=== PATIENT | female | born 1990 | race Caucasian/White ===

== ENCOUNTER → 2017-01-20 | Outpatient (CLI) | payer BC ==
[2017-01-20 16:19] LABS: CH 29.9; CHCM 34.7; HCT 34.8 % (34.0-46.0); HGB 11.9 gm/dL (11.4-16.0); MCH 29.6 pg (25.0-35.0); MCHC 34.3 g/dL (31.0-37.0); MCV 86.4 fL (80.0-100.0); RBC 4.03 m/uL (3.80-5.40); WBC 9.9 k/uL (3.8-10.6)
[2017-01-20 16:34] LABS: Glucose 84 mg/dL (74-99); Non-African American GFR(MDRD) >60 (>60 ml/min/1.73 sqM)
--- NOTE | 2017-01-20 16:40 | US ---
EXAMINATION TYPE: US OB <= 14 wk fetus DATE OF EXAM: 01/20/2017 3:58 PM COMPARISON: NONE CLINICAL HISTORY: Confirm Dates and Viability Z36. 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 Dates by Current Scan for: (11 weeks/2 days) EDC: 08/09/2017 MATERNAL ANATOMY Uterus: 14.1 x 8.9 x 6.9 Right Ovary: not seen due to bowel gas Left Ovary: not seen due to bowel gas Post CDS / Adnexa: wnl Presence of free fluid: no Presence of corpus luteal cyst: not seen Presence of subchorionic bleed: no GESTATION / SURVEY CRL: 4.3cm (11 weeks/2 days) MSD: wnl Yolk Sac (normal less than 6mm): not seen Heart Rate: 174 bpm Rhythm: Normal IUP: Viable IUP Date of LMP: 11/06/2016 Beta HcG (if available): not available IMPRESSION: VIABLE INTRAUTERINE GESTATION WITH A GESTATIONAL AGE OF 11 WEEKS 2 DAYS +/- 5 DAYS. ESTIMATED DATE OF CONFINEMENT BASED ON THIS EXAMINATION IS 08/09/2017.
[2017-01-20 17:05] LABS: Hepatitis B Surface Ag Index 0.08
[2017-01-21 05:31] LABS: Toxoplasma Antibody (IgG) <3.0 IU/mL (<7.2)
[2017-01-21 07:38] LABS: HIV-1/HIV-2 Ab Screen NONREAC (NON REAC)
== END | disposition home or self-care (01) ==
LOC: RADUSWWP 15:42
PROVIDERS: ATTEND Obstetrics & Gynecology
DX: Z36 Encounter for antenatal screening of mother (principal); Z3A.11 11 weeks gestation of pregnancy
CPT/HCPCS: 36415; 76801; 82565; 82947; 85027; 86762; 86777; 86778; 86780; 86850; 86900; 86901; 87340; 87389

== ENCOUNTER 2017-04-26 10:25 | Outpatient (CLI) | payer BC ==
[2017-04-26 11:40] VITALS: BP 115/59; PULSE 66; RESP 16; TEMP 97.7
== END 2017-04-26 11:35 | disposition home or self-care (01) ==
LOC: FBPOP 10:25
PROVIDERS: ATTEND Obstetrics & Gynecology
DX: O99.89 Other specified diseases and conditions complicating pregnancy, childbirth and the puerperium (principal); R19.7 Diarrhea, unspecified; R10.9 Unspecified abdominal pain; Z3A.24 24 weeks gestation of pregnancy
CPT/HCPCS: 99213

== ENCOUNTER → 2017-05-01 | Outpatient (CLI) | payer BC ==
[2017-05-01 10:11] LABS: CH 29.6; CHCM 34.2; HCT 35.8 % (34.0-46.0); HGB 12.6 gm/dL (11.4-16.0); MCH 30.6 pg (25.0-35.0); MCV 87.2 fL (80.0-100.0); Mean Platelet Volume 6.7; RBC 4.11 m/uL (3.80-5.40); RDW 13.7 % (11.5-15.5); WBC 10.3 k/uL (3.8-10.6)
== END | disposition home or self-care (01) ==
LOC: LABWHC1 08:14
PROVIDERS: ATTEND Obstetrics & Gynecology
DX: Z34.82 Encounter for supervision of other normal pregnancy, second trimester (principal); Z3A.00 Weeks of gestation of pregnancy not specified
CPT/HCPCS: 36415; 82950; 85027

== ENCOUNTER 2017-07-20 21:12 | Outpatient (CLI) | payer BC ==
[2017-07-20 21:29] VITALS: BP 117/59; PULSE 85; RESP 16; TEMP 97
--- NOTE | 2017-07-24 08:49 | P.MSEPDOC ---
Presenting Problems - Arrival Data Date of Arrival on Unit: 07/20/17 Time of Arrival on Unit: 21:11 Mode of Transport: Wheelchair - Complaint OB-Reason for Admission/Chief Complaint: Decreased Movement Medical History - Information : 2 Para: 1 Term: 0 : 1 Abortions: Spontaneous or Elective: 0 Number of Living Children: 1 - Gestational Age Gestational Age by AILYN (wks/days): 36 Weeks and 4 Days Review of Systems - Review of Systems Constitutional: No problems Breast: No problems ENT: No problems Cardiovascular: No problems Respiratory: No problems Gastrointestinal: No problems Genitourinary: No problems Musculoskeletal: No problems Neurological: No problems Skin: No problems Vital Signs - Temperature Temperature: 97.0 F Temperature Source: Temporal Artery Scan - Pulse Pulse Oximetery Pulse Rate: 85 Pulse Assessment Method: Automatic Cuff - Respirations Respiratory Rate: 16 Oxygen Delivery Method: Room Air - Blood Pressure Sitting Blood Pressure: 117/59 Blood Pressure Mean: 78 Blood Pressure Source: Automatic Cuff Medical Screen Scoring (Pre) - Cervical Exam Dilation: Exam Deferred Effacement: Exam Deferred - Uterine Contractions Frequency: > 5 minutes apart = 1 Duration: > 40 seconds = 2 Intensity: N/A - Maternal Vital Signs Maternal Temperature: N/A Maternal Blood Pressure: N/A Signs of Preeclampsia: N/A Maternal Respirations: N/A - Maternal Trauma Maternal Trauma: N/A - Assessment Baseline FHR: 130 Heart Rate - NICHD Category: Category I (Normal) = 0 Position: N/A Station: N/A - Total Score Total Score (Pre): 3 - Level of Risk Level of Risk: Low (0-5) Physician Notification (Pre) - Physician Notified Physician Notified Date: 07/20/17 Physician Notified Time: 21:54 Physician/Practitioner Notifed:: Dr. Velez New Order Received: Yes - Notification Comment Comment: Orders given to discharge patient home with instructions, patient is to return to the hospital if she experiences decreased movement, otherwise follow up with Dr. Johnson in the office 07/22 Disposition - Disposition OB Disposition: Discharge to home, Written follow up instructions reviewed Discharge Date: 07/20/17 Discharge Time: 22:00 I agree with the RN Medical Screening Exam: Yes Risk & Benefit of care provided described in d/c instruction: Yes Diagnosis: DECREASED MOVEMENTS, THIRD TRIMESTER, UNSP
== END 2017-07-20 22:00 | disposition home or self-care (01) ==
LOC: FBPOP 21:12
PROVIDERS: ATTEND Obstetrics & Gynecology
DX: O36.8130 Decreased fetal movements, third trimester, not applicable or unspecified (principal); Z3A.36 36 weeks gestation of pregnancy
CPT/HCPCS: 59025; 99213

== ENCOUNTER 2017-08-11 05:33 | Inpatient (IN) | payer BC ==
[2017-08-11] MEDS ORDERED: OXYTOCIN 10 UNIT/ML 1 ML VIAL IM PRN (05:51)
[2017-08-11] MEDS ORDERED: CARBOPROST TROMETHAMINE 250 MCG/ML 1 ML AMP IM PRN (05:51)
[2017-08-11] MEDS ORDERED: OXYTOCIN 20 UNITS/1000 ML NS 1,000 ML IV SCH ×2 (05:51→17:34)
[2017-08-11] MEDS ORDERED: LIDOCAINE 1% (PF) 10 MG/ML (30 ML SDV) SQ PRN (05:51)
[2017-08-11] MEDS ORDERED: TERBUTALINE 1 MG/ML VIAL SQ PRN (05:51)
[2017-08-11] MEDS ORDERED: METHYLERGONOVINE 0.2 MG/ML 1 ML AMP IM PRN (05:51)
[2017-08-11 06:01] VITALS: RESP 16; BMI 35.9
[2017-08-11] MEDS: LACTATED RINGERS 1,000 ML IV SCH ×3 (06:02→10:43)
[2017-08-11 06:03] LABS: Basophils % (A) 0 %; CH 27.7; Eosinophils # (A) 0.1 k/uL (0-0.7); Eosinophils % (A) 1 %; HCT 35.1 % (34.0-46.0); HDW 3.12; HGB 11.6 gm/dL (11.4-16.0); Luc # (Auto) 0.25; Luc % (Auto) 3; Lymphocytes # (A) 1.6 k/uL (1.0-4.8); Lymphocytes % (A) 19 %; MCH 27.8 pg (25.0-35.0); MCV 84.2 fL (80.0-100.0); Mean Platelet Volume 7.3; Monocytes # (A) 0.4 k/uL (0-1.0); Monocytes % (A) 5 %; Neutrophils % (A) 72 %; RBC 4.17 m/uL (3.80-5.40); WBC 8.3 k/uL (3.8-10.6); WBC (Perox) 8.03
--- NOTE | 2017-08-11 06:24 | P.HPOB ---
History of Present Illness H&P Date: 08/11/17 Chief Complaint: Patient is requesting induction of labor. This patient is a pleasant 26-year-old 2 para 1 female estimated date of confinement 12/14/2016 estimated gestational age 39-5/7 weeks' gestation who is presenting to labor and delivery for requested induction of labor. Patient' s care has been uncomplicated. Patient's been uncomfortable and has a favorable cervix at this time as requested induction of labor. Review of Systems Constitutional: Denies chills, Denies fever Cardiovascular: Denies chest pain, Denies shortness of breath Respiratory: Denies cough Gastrointestinal: Reports heartburn Genitourinary: Reports Menstruation: Reports amenorrhea Past Medical History Past Medical History: Asthma History of Any Multi-Drug Resistant Organisms: None Reported Past Surgical History: No Surgical Hx Reported Additional Past Surgical History / Comment(s): [place] Tooth extraction Past Anesthesia/Blood Transfusion Reactions: No Reported Reaction Past Psychological History: No Psychological Hx Reported Smoking Status: Former smoker Past Alcohol Use History: None Reported Past Drug Use History: None Reported - Past Family History Mother Family Medical History: No Reported History Medications and Allergies Home Medications Medication Instructions Recorded Confirmed Type Multivitamins, Thera [Multivitamin] 1 tab PO DAILY 07/09/16 08/11/17 History Allergies Allergy/AdvReac Type Severity Reaction Status Date / Time iodine Allergy Severe Anaphylaxis Verified 08/11/17 05:51 shellfish derived [Shellfish] Allergy Severe Anaphylaxis Verified 08/11/17 05:51 Exam - Vital Signs Vital signs: Vital Signs Temp Pulse Resp BP 08/11/17 05:55 97.5 F L 83 16 125/60 Intake and Output 08/10/17 08/10/17 08/11/17 14:59 22:59 06:59 Other: # Voids 1 Weight 110.223 kg Patient Weight 08/11/17 06:59 Weight 110.223 kg - OBG Physical Exam Abdomen: bowel sounds normal, no diffuse tenderness, no bruit present, no guarding noted, no hepatomegaly, no splenomegaly, no mass Vulva: both: normal Vagina: normal moisture, no discharge Cervix: Cervix is 2-3 cm dilated 50% effaced -2 station. Cervix: no lesion, no discharge Uterus: enlarged (Fundal height is 40 cm.) Results blood work shows she is A positive, rubella low positive, RPR is nonreactive, hepatitis B was negative, group B strep was negative, Glucola was normal, ultrasounds were normal. Estimated weight is 8-1/2-9 pounds. Result Diagrams: 08/11/17 05:55 Assessment and Plan (1) Elective induction of labor planned Narrative/Plan: This is a pleasant 26-year-old 2 para 1 female 39-5/7 weeks' gestation presents to labor and delivery for elective induction of labor. Plan is induction of labor and anticipate vaginal delivery. Status: Acute
[2017-08-11] MEDS ORDERED: BUPIVACAINE (PF) 0.25% 30 ML VIAL ONE (10:16)
[2017-08-11] MEDS ORDERED: fentaNYL (PF) 50 MCG/ML 5 ML AMP ONE (10:16)
[2017-08-11] MEDS ORDERED: SODIUM CHLORIDE 0.9% 100 ML BAG ONE (10:16)
[2017-08-11] MEDS ORDERED: BUPIVACAINE (PF) 0.25% 25 ML, fentaNYL (PF) 200 MCG in SODIUM CHLORIDE 0.9% 71 ML EPIDURAL ONE (10:32)
--- NOTE | 2017-08-11 17:22 | P.PROBDLV ---
Vaginal Delivery Note - . Vaginal Delivery Note: Normal vaginal delivery viable female Apgars 8 and 9 delivery time is 1657 hrs. Please see dictated H&P for intimate details of this patient's admission. In summary this is a pleasant 26 2 para 1 female 39-5/7 weeks gestation who was admitted to labor and delivery for requested induction of labor. Patient admission is 2-3 cm dilated has artificial rupture membranes for clear fluid. Patient's labor is induced with Pitocin per protocol. She does progress she gets an epidural for pain control. Patient pushes for approximately 1 hour and 's position was occiput posterior presentation, however with the last push and rotates and the patient delivers the has had an entire body with 1 push. A midline episiotomy was made. There is a nuchal cord which the patient delivered through is very loose. The umbilical cords and doubly clamped and cut. is late on the mother's abdomen. Vigorous viable female infant Apgars are 8 and 9 delivery time is 1657 hrs. Placenta spontaneously delivered intact. Inspection of perineum shows a second- degree laceration which is repaired with 3-0 Vicryl usual fashion. Excellent reapproximation is noted. Estimated blood loss 175 mL. There are no complications. All counts are correct 3.
[2017-08-11] MEDS ORDERED: diphenhydrAMINE 50 MG/ML 1 ML VIAL IVP PRN (17:34)
[2017-08-11] MEDS ORDERED: BENZOCAINE/MENTHOL SPRAY 1 GM/SPRAY AEROSOL TOPICAL PRN (17:34)
[2017-08-11] MEDS ORDERED: diphenhydrAMINE 25 MG CAP PO PRN (17:34)
[2017-08-11] MEDS ORDERED: ZOLPIDEM 5 MG TAB PO PRN (17:34)
[2017-08-11] MEDS ORDERED: BISACODYL 10 MG SUPP RECTAL PRN (17:34)
[2017-08-11] MEDS ORDERED: SIMETHICONE 80 MG CHEWABLE PO PRN (17:34)
[2017-08-11] MEDS ORDERED: MEASLES-MUMPS-RUBELLA VACC/PF 12,500 UNIT/0.5 ML VIAL SQ ONE (17:34)
[2017-08-11] MEDS ORDERED: LANOLIN CREAM 5 GM TUBE TOPICAL PRN (17:34)
[2017-08-11] MEDS ORDERED: ACETAMINOPHEN TAB 325 MG TAB PO PRN (17:34)
[2017-08-11] MEDS ORDERED: WITCH HAZEL 1 EACH MED..PAD TOPICAL PRN (17:34)
[2017-08-11] MEDS ORDERED: HYDROCORTISONE 2.5% RECTAL CREAM 30 GM TUBE RECTAL PRN (17:34)
[2017-08-11] MEDS ORDERED: Acetaminophen-Codeine 300-30mg TAB PO PRN ×2 (17:34)
[2017-08-11] MEDS: IBUPROFEN 600 MG TAB PO PRN (17:52)
[2017-08-11] MEDS: SENNOSIDES-DOCUSATE SODIUM 1 EACH TAB PO SCH ×2 (18:44→20:58)
--- NOTE | 2017-08-12 06:19 | P.PNOBGVD ---
Subjective - Subjective Patient reports: Reports appetite normal, Reports voiding normally, Reports pain well controlled, Reports ambulating normally : doing well Objective - Latest Vital Signs Latest vital signs: Vital Signs Temp Pulse Pulse Resp BP BP Pulse Ox 08/12/17 03:45 98.0 F 81 16 109/57 97 08/11/17 23:35 98.0 F 83 16 100/55 96 08/11/17 19:28 97.4 F L 88 16 130/77 08/11/17 18:58 85 16 136/64 08/11/17 18:28 98.8 F 80 16 136/74 08/11/17 18:13 96 16 134/73 08/11/17 17:58 99 16 137/78 08/11/17 17:43 100 16 133/72 08/11/17 17:28 101 H 16 139/73 Intake and Output 08/11/17 08/11/17 08/12/17 14:59 22:59 06:59 Intake Total 2532.4 Output Total 600 Balance 1932.4 Intake: IV 2000 Lactated Ringers 1,000 ml 2000 @ 125 mls/hr IV .Q8H EMMIE Rx#:[id number] Intake, IV Titration 532.4 Amount Oxytocin 20 Units/1000 ml 532.4 Ns 1,000 ml @ 1 MILLIUNIT/MIN 3 mls/hr IV .Q24H EMMIE Rx#:[id number] Output: Urine 600 Other: # Voids 1 - Exam Lungs: bilateral: normal Chest: Normal S1, Normal S2 Extremities: Present: normal Abdomen: Present: normal appearance, soft Uterus: Present: normal, firm Assessment and Plan Assessment: day #1. Patient is resting without complaints wishes to go home today. Vital signs are stable she is afebrile. Uterus is firm nontender she's having normal lochia. My impression this is a normal course. Plan is to continue routine care discharge home later today. (1) Elective induction of labor planned Current Visit: Yes Status: Acute Code(s): [id number] - SNOMED Code(s): 884318924
--- NOTE | 2017-08-12 06:21 | P.DS ---
Providers Date of admission: 08/11/17 05:33 Expected date of discharge: 08/12/17 Attending physician: Quentin Johnson Primary care physician: Toby Gonzáles - Discharge Diagnosis(es) (1) Elective induction of labor planned Current Visit: Yes Status: Acute Hospital Course: Please see dictated H&P for intimate details of this patient's admission. Brief summary is a pleasant 26-year-old 2 para 1 female 39-5/7 weeks gestation admitted to labor and delivery for elective induction of labor. Patient is admitted has uncomplicated induction of labor was on have vaginal delivery viable female infant. Please see dictated delivery note. day #1 patient is without complaints wishes to go home. Patient's felt be stable for discharge home follow up with me in 6 weeks. Procedures: Induction of labor and normal vaginal delivery. Patient Condition at Discharge: Good Plan - Discharge Summary New Discharge Prescriptions: New Acetaminophen-Codeine 300-30mg [Tylenol w/codeine #3] 1 - 2 each PO Q4HR PRN #30 tab PRN Reason: Mild Pain exceeding Tylenol Ibuprofen [Motrin] 600 mg PO Q6HR PRN #40 tab PRN Reason: Mild Pain Or Fever >= 100.5 No Action Multivitamins, Thera [Multivitamin] 1 tab PO DAILY Discharge Medication List Multivitamins, Thera [Multivitamin] 1 tab PO DAILY 07/09/16 [History] Acetaminophen-Codeine 300-30mg [Tylenol w/codeine #3] 1 - 2 each PO Q4HR PRN # 30 tab 08/12/17 [Rx] Ibuprofen [Motrin] 600 mg PO Q6HR PRN #40 tab 08/12/17 [Rx] Follow up Appointment(s)/Referral(s): Quentin Johnson MD [STAFF PHYSICIAN] - 6 Weeks Patient Instructions/Handouts: Vaginal Delivery (DC) Activity/Diet/Wound Care/Special Instructions: No intercourse or anything per vagina for 6 weeks. Please call if any fever, chills, excessive vaginal bleeding, and/or abdominal pain. Discharge Disposition: HOME SELF-CARE
[2017-08-12] MEDS: SENNOSIDES-DOCUSATE SODIUM 1 EACH TAB PO SCH (07:38)
[2017-08-12] MEDS: IBUPROFEN 600 MG TAB PO PRN ×2 (09:07→14:45)
[2017-08-12 14:11] VITALS: TEMP 98
[2017-08-12 18:20] VITALS: BP 112/70; PULSE 82
== END 2017-08-12 18:00 | disposition home or self-care (01) | DRG 775 ==
LOC: 4FBP 05:33
PROVIDERS: ADMIT Obstetrics & Gynecology; ATTEND Obstetrics & Gynecology
PROC: 3E033VJ Introduction of Other Hormone into Peripheral Vein, Percutaneous Approach (ICD-10-PCS; principal; 2017-08-11)
PROC: 10E0XZZ Delivery of Products of Conception, External Approach (ICD-10-PCS; principal; 2017-08-11)
PROC: 10907ZC Drainage of Amniotic Fluid, Therapeutic from Products of Conception, Via Natural or Artificial Opening (ICD-10-PCS; principal; 2017-08-11)
PROC: 00HU33Z Insertion of Infusion Device into Spinal Canal, Percutaneous Approach (ICD-10-PCS; principal; 2017-08-11)
PROC: 0KQM0ZZ Repair Perineum Muscle, Open Approach (ICD-10-PCS; principal; 2017-08-11)
PROC: 3E0R3BZ Introduction of Anesthetic Agent into Spinal Canal, Percutaneous Approach (ICD-10-PCS; principal; 2017-08-11)
PROC: 0W8NXZZ Division of Female Perineum, External Approach (ICD-10-PCS; principal; 2017-08-11)
DX: O69.81X0 Labor and delivery complicated by cord around neck, without compression, not applicable or unspecified (principal); O70.1 Second degree perineal laceration during delivery; Z37.0 Single live birth; Z3A.39 39 weeks gestation of pregnancy; Z87.891 Personal history of nicotine dependence; Z88.3 Allergy status to other anti-infective agents; Z91.013 Allergy to seafood
CPT/HCPCS: 85025; 88307; 90707

== ENCOUNTER → 2019-12-20 | Outpatient (CLI) | payer BC ==
[2019-12-20 17:45] LABS: HCT 36.2 % (34.0-46.0); HGB 12.1 gm/dL (11.4-16.0); MCH 26.9 pg (25.0-35.0); MCHC 33.5 g/dL (31.0-37.0); MCV 80.4 fL (80.0-100.0); Mean Platelet Volume 7.5; Platelet Count 230 k/uL (150-450); RDW 13.7 % (11.5-15.5); WBC 8.4 k/uL (3.8-10.6)
[2019-12-20 18:04] LABS: Lymphocytes # (M) 2.69 k/uL (1.0-4.8); Monocytes # (M) 0.25 k/uL (0-1.0); Neutrophils # (M) 5.46 k/uL (1.3-7.7); Neutrophils % (M) 65 %; Nucleated Red Blood Cells 0 /100 WBC (0-0); Total Cells Counted 100
[2019-12-20 18:08] LABS: Ovalocytes Present; Polychromasia Present
[2019-12-20 18:58] LABS: Erythrocyte Sedimentation Rate 6 mm/hr (0-20)
[2019-12-21 01:51] LABS: % Iron Saturation 8.64 (12.00-45.00); ALT 18 U/L (8-44); AST 12 U/L (13-35); African American GFR (CKD) 114.7 (60.0-200.0); Albumin/Globulin Ratio 1.96 (1.60-3.17); Alkaline Phosphatase 66 U/L (41-126); C Reactive Protein <0.4 mg/dL (0.0-0.8); Calcium 9.3 mg/dL (8.7-10.3); Carbon Dioxide 28.6 mmol/L (21.6-31.8); Chloride 105 mmol/L (96-109); Creatine Kinase 73 U/L (26-186); Ferritin 10.4 ng/mL (10.0-291.0); Globulin 2.3 g/dL (1.6-3.3); Glucose 96 mg/dL (70-110); Iron 35 ug/dL (50-170); Non-African American GFR(CKD) 98.9 (60.0-200.0); Potassium 4.2 mmol/L (3.5-5.5); Rheumatoid Factor, Qnt <4 IU/mL (0-15); Sodium 139 mmol/L (135-145); Total Bilirubin 0.3 mg/dL (0.3-1.2); Total Iron Binding Capacity 405 ug/dL (228-460); Total Protein 6.8 g/dL (6.2-8.2)
[2019-12-21 06:51] LABS: DNA Double-Stranded Indetermin (NEGATIVE); EBV-EA (IgG) 0.9 AI; EBV-EBNA(IgG) 7.3 AI; EBV-VCA (IgG) >8.0 AI; EBV-VCA (IgM) <0.2 AI
== END | disposition home or self-care (01) ==
LOC: LABWHC1 17:06
PROVIDERS: ATTEND Nurse Practitioner Family
DX: R53.83 Other fatigue (principal); R10.9 Unspecified abdominal pain; Z84.0 Family history of diseases of the skin and subcutaneous tissue
CPT/HCPCS: 36415; 80053; 82306; 82550; 82607; 82728; 83540; 83550; 84439; 84443; 85025; 85652; 86038; 86140; 86225; 86431; 86644; 86645; 86663; 86664; 86665

== ENCOUNTER → 2020-10-23 | Outpatient (CLI) | payer BC ==
--- NOTE | 2020-10-23 08:54 | US ---
EXAMINATION TYPE: US extremity nonvasc mass LT DATE OF EXAM: 10/23/2020 COMPARISON: NONE CLINICAL HISTORY: R22.42 SWELLING, MASS, AND LUMP LT LOWER LIMB. Palpable on left thigh for 4 weeks, no pain, no change in size, no trama the patient can remember. 2.0 x 1.0 x 1.0cm hyperechoic, slightly complex, lesion that may represent a resolving hematoma versu s lipoma. No vascularity noted. IMPRESSION: 1. There is an ill-defined hyperechoic area within the subcutaneous tissues which is nonspecific. Lip raymundo should be considered. Recommendations: 1. Follow-up ultrasound in one month. If this is changing over the interval, MRI with contrast would be recommended.
== END | disposition home or self-care (01) ==
LOC: RADUSWWP 07:32
PROVIDERS: ATTEND Family Medicine
DX: R22.42 Localized swelling, mass and lump, left lower limb (principal)

== ENCOUNTER → 2021-01-15 | Outpatient (CLI) | payer BC | END | disposition home or self-care (01) | LOC: LABWHC1 16:28 | PROVIDERS: ATTEND Family Medicine | DX: Z20.822 Contact with and (suspected) exposure to COVID-19 (principal) | CPT/HCPCS: U0003; C9803; U0005 ==

== ENCOUNTER → 2021-04-15 | Outpatient (CLI) | payer BC | END | disposition home or self-care (01) | LOC: LABWHC1 15:14 | PROVIDERS: ATTEND Family Medicine | DX: R53.81 Other malaise (principal) | CPT/HCPCS: U0003; C9803 ==

== ENCOUNTER → 2021-05-30 | Outpatient (CLI) | payer BC ==
[2021-05-30 15:04] LABS: Basophils % (A) 0 %; Eosinophils # (A) 0.1 k/uL (0-0.7); Eosinophils % (A) 2 %; HCT 35.2 % (34.0-46.0); HGB 11.5 gm/dL (11.4-16.0); Lymphocytes # (A) 2.3 k/uL (1.0-4.8); Lymphocytes % (A) 30 %; MCH 26.1 pg (25.0-35.0); MCHC 32.6 g/dL (31.0-37.0); MCV 79.9 fL (80.0-100.0); Monocytes # (A) 0.3 k/uL (0-1.0); Monocytes % (A) 4 %; Neutrophils # (A) 4.8 k/uL (1.3-7.7); Neutrophils % (A) 63 %; Platelet Count 257 k/uL (150-450); RDW 14.5 % (11.5-15.5); WBC 7.7 k/uL (3.8-10.6)
== END | disposition home or self-care (01) ==
LOC: LABPAT 14:14
PROVIDERS: ATTEND Obstetrics & Gynecology
DX: Z01.812 Encounter for preprocedural laboratory examination (principal); N92.0 Excessive and frequent menstruation with regular cycle; N84.0 Polyp of corpus uteri
CPT/HCPCS: 36415; 85025

== ENCOUNTER 2021-06-03 09:06 | Day surgery (SDC) | payer BC ==
[2021-05-31 10:38] VITALS: BMI 25.7
[~2021-06-03 09:06] MED LIST: DEXAMETHASONE SOD PHOSPHATE 4 MG/ML 1 ML VIAL IV ONE; HYDROmorphone 0.5 MG/0.5 ML SYRINGE IVP PRN; LIDOCAINE 1% (10MG/ML) FOR IV START INTRADERMA PRN; MIDAZOLAM 2 MG/2 ML VIAL IV PRN; ONDANSETRON 4 MG/2 ML VIAL IVP ONE; Pre Op ABX Message 1 EACH MISC MISCELLANE ONE
[2021-06-03] MEDS: LACTATED RINGERS 1,000 ML IV SCH ×2 (09:54→13:04)
[2021-06-03] MEDS ORDERED: KETOROLAC 15 MG/ML 1 ML VIAL ONE (10:48)
[2021-06-03] MEDS ORDERED: LIDOCAINE 1% INJ 10MG/ML (20 ML MDV) ONE (10:48)
[2021-06-03] MEDS ORDERED: PROPOFOL 10 MG/ML 20 ML VIAL IV ONE (10:48)
[2021-06-03] MEDS ORDERED: MIDAZOLAM 2 MG/2 ML VIAL ONE (10:48)
[2021-06-03] MEDS ORDERED: fentaNYL (PF) 50 MCG/ML 2 ML AMP ONE (10:48)
--- NOTE | 2021-06-03 11:22 | P.OP ---
Date of Procedure: 06/03/21 Preoperative Diagnosis: Menorrhagia, endometrial polyps Postoperative Diagnosis: Same Procedure(s) Performed: Hysteroscopy, D&C, polypectomy Surgeon: Brittany Verdugo Estimated Blood Loss (ml): 50 IV fluids (ml): 200 Urine output (ml): 100 Pathology: other (Endometrial curettings and polyps) Condition: stable Disposition: PACU Operative Findings: Multiple small endometrial polyps. Examination under anesthesia within normal limits, negative adnexa bilaterally. Description of Procedure: Patient is brought to the operating suite where a general anesthetic is administered. She's placed in the dorsal lithotomy position. The appropriate timeout was performed to assure proper patient and procedural identification. Urine hCG is negative. Antibiotics are not deemed necessary. The cervix, vagina, perineal bodies are all prepped and draped in the usual sterile fashion. Examination under anesthesia reveals an anteverted uterus, negative adnexa bilaterally. Weighted speculum was placed into the vagina. Bladder is drained for approximately 100 mL of clear yellow urine. Weighted speculum was placed into the vagina. Anterior lip of the cervix is grasped with a double-tooth tenaculum. Uterus sounds to a depth of 10 cm in the anteverted position. Cervix is gently and easily dilated using Hanks dilators with little resistance. Hysteroscope was then placed and fluid is infused. The cavity is distended and inspected, shaggy-appearing proliferative tissue is noted along with several small polyps. Hysteroscope was removed. A medium sharp curette is used and all 4 quadrants thoroughly to curettage the endometrial cavity. A fair amount of tissue and polyps are obtained. Polyp forcep is then used to remove additional tissue. Hemostasis is now excellent. Hysteroscope was once again placed and the cavity appears to be clear. All sponge needle and enhancement counts are correct. Anterior lip of the cervix is clean and dry. Toradol is given prior to leaving the operative suite. Patient is brought back to the recovery room in very good condition with stable vital signs including blood pressure 90/40, pulse 80, 100% oxygen saturation. Patient will follow-up with me in the office in 2 weeks.
[2021-06-03 11:27] VITALS: TEMP 97.9
[2021-06-03 11:37] VITALS: RESP 16
[2021-06-03 13:27] VITALS: BP 96/60; PULSE 71
== END 2021-06-03 13:30 | disposition home or self-care (01) ==
LOC: OR 09:06
PROVIDERS: ATTEND Obstetrics & Gynecology
DX: N84.0 Polyp of corpus uteri (principal); N92.0 Excessive and frequent menstruation with regular cycle; J45.909 Unspecified asthma, uncomplicated
CPT/HCPCS: 58558; 81025; 88305; J2250; J1100; J2405; J2001; J3010; J1885; J2704

== ENCOUNTER 2021-07-07 00:31 | Emergency (ER) | payer BC, OTHER ==
[2021-07-07 01:23] VITALS: RESP 18
[2021-07-07] MEDS ORDERED: SODIUM CHLORIDE 0.9% 1,000 ML IV STA (01:46)
--- NOTE | 2021-07-07 01:47 | ED ---
Weakness HPI - General Chief complaint: Allergic Reaction Stated complaint: Allergic Reaction Time Seen by Provider: 07/07/21 01:36 Source: patient, family, RN notes reviewed, old records reviewed Mode of arrival: wheelchair Limitations: no limitations - History of Present Illness Initial comments: This is a 30-year-old female presenting for concern of possible medication reaction. Patient states she has not felt well lightheadedness dizziness lip sw elling maybe some shortness of breath prior to arrival. Only thing that happened tonight which she did take her medication Prometrium just prior to arrival. MD Complaint: generalized weakness -: days(s) Location: generalized Severity: moderate Severity scale (1-10): 6 Quality: sharp Consistency: constant, now resolved Improves with: none Worsens with: none Context: history of similar Associated Symptoms: denies other symptoms - Related Data Home Medications Medication Instructions Recorded Confirmed Albuterol Inhaler [Ventolin Hfa 1 puff INHALATION DIRECTED PRN 05/31/21 06/03/21 Inhaler] Pnv No.95/Ferrous Fum/Folic AC 1 each PO DAILY 05/31/21 05/31/21 [ Multivitamin Tablet] Allergies Allergy/AdvReac Type Severity Reaction Status Date / Time iodine Allergy Severe Rash/Hives Verified 07/07/21 00:42 shellfish derived [Shellfish] Allergy Severe Anaphylaxis Verified 07/07/21 00:42 Review of Systems ROS Statement: Those systems with pertinent positive or pertinent negative responses have been documented in the HPI. ROS Other: All systems not noted in ROS Statement are negative. Past Medical History Past Medical History: Asthma Additional Past Medical History / Comment(s): IBS, IRON DEFICIENCY, MIGRAINES, STATES BROKEN PELVIS WITH CHILDBIRTH., MENORRHAGIA. History of Any Multi-Drug Resistant Organisms: None Reported Past Surgical History: No Surgical Hx Reported Additional Past Surgical History / Comment(s): D&C Past Anesthesia/Blood Transfusion Reactions: No Reported Reaction Additional Past Anesthesia/Blood Transfusion Reaction / Comment(s): NO ANEST HESIA HX. Past Psychological History: No Psychological Hx Reported Smoking Status: Former smoker Past Alcohol Use History: Rare Past Drug Use History: None Reported - Past Family History Mother Family Medical History: No Reported History General Exam Limitations: no limitations General appearance: alert, in no apparent distress, anxious Head exam: Present: atraumatic, normocephalic, normal inspection Eye exam: Present: normal appearance, PERRL, EOMI. Absent: scleral icterus, conjunctival injection, periorbital swelling ENT exam: Present: normal exam, mucous membranes moist Neck exam: Present: normal inspection. Absent: tenderness, meningismus, lymphadenopathy Respiratory exam: Present: normal lung sounds bilaterally. Absent: respiratory distress, wheezes, rales, rhonchi, stridor Cardiovascular Exam: Present: regular rate, normal rhythm, normal heart sounds. Absent: systolic murmur, diastolic murmur, rubs, gallop, clicks GI/Abdominal exam: Present: soft, normal bowel sounds. Absent: distended, tenderness, guarding, rebound, rigid Extremities exam: Present: normal inspection, full ROM, normal capillary refill. Absent: tenderness, pedal edema, joint swelling, calf tenderness Back exam: Present: normal inspection Neurological exam: Present: alert, oriented X3, CN II-XII intact Psychiatric exam: Present: normal affect, normal mood Skin exam: Present: warm, dry, intact, normal color. Absent: rash Course Vital Signs 07/07/21 07/07/21 07/07/21 00:38 01:18 01:25 Temperature 97.6 F Pulse Rate 71 95 Respiratory 20 18 18 Rate Blood Pressure 96/65 95/55 O2 Sat by Pulse 100 99 Oximetry 07/07/21 03:29 Temperature 98.6 F Pulse Rate 71 Respiratory 18 Rate Blood Pressure 95/53 O2 Sat by Pulse 99 Oximetry - Reevaluation(s) Reevaluation #1: Medical record is reviewed Patient symptoms improved here in the ER Patient informed results and questions answered Patient is in no acute distress Medical Decision Making - Medical Decision Making 30 female with lip swelling concern for ALLERGIC reaction after taking medications a. Symptoms resolved upon arrival to the emergency department and patient can be discharged home - Lab Data Result diagrams: 07/07/21 02:06 07/07/21 02:06 Lab Results 07/07/21 07/07/21 07/07/21 Range/Units 02:06 02:06 02:06 WBC 7.3 (3.8-10.6) k/uL RBC 4.23 (3.80-5.40) m/uL Hgb 11.5 (11.4-16.0) gm/dL Hct 33.0 L (34.0-46.0) % MCV 78.0 L (80.0-100.0) fL MCH 27.1 (25.0-35.0) pg MCHC 34.7 (31.0-37.0) g/dL RDW 14.7 (11.5-15.5) % Plt Count 192 (150-450) k/uL MPV 8.1 Neutrophils % 58 % Lymphocytes % 33 % Monocytes % 5 % Eosinophils % 2 % Basophils % 0 % Neutrophils # 4.2 (1.3-7.7) k/uL Lymphocytes # 2.4 (1.0-4.8) k/uL Monocytes # 0.4 (0-1.0) k/uL Eosinophils # 0.2 (0-0.7) k/uL Basophils # 0.0 (0-0.2) k/uL PT 11.3 (9.0-12.0) sec INR 1.1 (<1.2) APTT 24.9 (22.0-30.0) sec Sodium (137-145) mmol/L Potassium (3.5-5.1) mmol/L Chloride (98-107) mmol/L Carbon Dioxide (22-30) mmol/L Anion Gap mmol/L BUN (7-17) mg/dL Creatinine (0.52-1.04) mg/dL Est GFR (CKD-EPI)AfAm (>60 ml/min/1.73 sqM) Est GFR (CKD-EPI)NonAf (>60 ml/min/1.73 sqM) Glucose (74-99) mg/dL Plasma Lactic Acid Sy (0.7-2.0) mmol/L Calcium (8.4-10.2) mg/dL Phosphorus (2.5-4.5) mg/dL Magnesium (1.6-2.3) mg/dL Total Bilirubin (0.2-1.3) mg/dL AST (14-36) U/L ALT (4-34) U/L Alkaline Phosphatase (38-126) U/L Creatine Kinase (30-135) U/L Troponin I (0.000-0.034) ng/mL Total Protein (6.3-8.2) g/dL Albumin (3.5-5.0) g/dL TSH (0.465-4.680) mIU/L Urine Color Light Yellow Urine Appearance Clear (Clear) Urine pH 6.5 (5.0-8.0) Ur Specific [place] 1.011 (1.001-1.035) Urine Protein Negative (Negative) Urine Glucose (UA) Negative (Negative) Urine Ketones Negative (Negative) Urine Blood Negative (Negative) Urine Nitrite Negative (Negative) Urine Bilirubin Negative (Negative) Urine Urobilinogen <2.0 (<2.0) mg/dL Ur Leukocyte Esterase Trace H (Negative) Urine RBC <1 (0-5) /hpf Urine WBC 1 (0-5) /hpf Ur Squamous Epith Cells <1 (0-4) /hpf Urine Mucus Rare H (None) /hpf Urine Opiates Screen Not Detected (NotDetected) Ur Oxycodone Screen Not Detected (NotDetected) Urine Methadone Screen Not Detected (NotDetected) Ur Propoxyphene Screen Not Detected (NotDetected) Ur Barbiturates Screen Not Detected (NotDetected) U Tricyclic Antidepress Not Detected (NotDetected) Ur Phencyclidine Scrn Not Detected (NotDetected) Ur Amphetamines Screen Not Detected (NotDetected) U Methamphetamines Scrn Not Detected (NotDetected) U Benzodiazepines Scrn Not Detected (NotDetected) Urine Cocaine Screen Not Detected (NotDetected) U Marijuana (THC) Screen Not Detected (NotDetected) 07/07/21 07/07/21 07/07/21 Range/Units 02:06 02:06 02:06 WBC (3.8-10.6) k/uL RBC (3.80-5.40) m/uL Hgb (11.4-16.0) gm/dL Hct (34.0-46.0) % MCV (80.0-100.0) fL MCH (25.0-35.0) pg MCHC (31.0-37.0) g/dL RDW (11.5-15.5) % Plt Count (150-450) k/uL MPV Neutrophils % % Lymphocytes % % Monocytes % % Eosinophils % % Basophils % % Neutrophils # (1.3-7.7) k/uL Lymphocytes # (1.0-4.8) k/uL Monocytes # (0-1.0) k/uL Eosinophils # (0-0.7) k/uL Basophils # (0-0.2) k/uL PT (9.0-12.0) sec INR (<1.2) APTT (22.0-30.0) sec Sodium 137 (137-145) mmol/L Potassium 3.7 (3.5-5.1) mmol/L Chloride 107 (98-107) mmol/L Carbon Dioxide 20 L (22-30) mmol/L Anion Gap 10 mmol/L BUN 16 (7-17) mg/dL Creatinine 0.73 (0.52-1.04) mg/dL Est GFR (CKD-EPI)AfAm >90 (>60 ml/min/1.73 sqM) Est GFR (CKD-EPI)NonAf >90 (>60 ml/min/1.73 sqM) Glucose 138 H (74-99) mg/dL Plasma Lactic Acid Sy 1.3 (0.7-2.0) mmol/L Calcium 9.3 (8.4-10.2) mg/dL Phosphorus 4.0 (2.5-4.5) mg/dL Magnesium 2.1 (1.6-2.3) mg/dL Total Bilirubin 0.4 (0.2-1.3) mg/dL AST 17 (14-36) U/L ALT 16 (4-34) U/L Alkaline Phosphatase 48 (38-126) U/L Creatine Kinase 51 (30-135) U/L Troponin I <0.012 (0.000-0.034) ng/mL Total Protein 6.6 (6.3-8.2) g/dL Albumin 3.9 (3.5-5.0) g/dL TSH 0.855 (0.465-4.680) mIU/L Urine Color Urine Appearance (Clear) Urine pH (5.0-8.0) Ur Specific [place] (1.001-1.035) Urine Protein (Negative) Urine Glucose (UA) (Negative) Urine Ketones (Negative) Urine Blood (Negative) Urine Nitrite (Negative) Urine Bilirubin (Negative) Urine Urobilinogen (<2.0) mg/dL Ur Leukocyte Esterase (Negative) Urine RBC (0-5) /hpf Urine WBC (0-5) /hpf Ur Squamous Epith Cells (0-4) /hpf Urine Mucus (None) /hpf Urine Opiates Screen (NotDetected) Ur Oxycodone Screen (NotDetected) Urine Methadone Screen (NotDetected) Ur Propoxyphene Screen (NotDetected) Ur Barbiturates Screen (NotDetected) U Tricyclic Antidepress (NotDetected) Ur Phencyclidine Scrn (NotDetected) Ur Amphetamines Screen (NotDetected) U Methamphetamines Scrn (NotDetected) U Benzodiazepines Scrn (NotDetected) Urine Cocaine Screen (NotDetected) U Marijuana (THC) Screen (NotDetected) Disposition Clinical Impression: Weakness Disposition: HOME SELF-CARE Condition: Good Instructions (If sedation given, give patient instructions): Weakness (ED) Is patient prescribed a controlled substance at d/c from ED?: No Referrals: Toby Gonzáles DO [Primary Care Provider] - 1-2 days
[2021-07-07 02:33] LABS: Basophils % (A) 0 %; Eosinophils # (A) 0.2 k/uL (0-0.7); Eosinophils % (A) 2 %; HGB 11.5 gm/dL (11.4-16.0); Lymphocytes # (A) 2.4 k/uL (1.0-4.8); Lymphocytes % (A) 33 %; MCH 27.1 pg (25.0-35.0); MCHC 34.7 g/dL (31.0-37.0); Mean Platelet Volume 8.1; Monocytes # (A) 0.4 k/uL (0-1.0); Monocytes % (A) 5 %; Neutrophils # (A) 4.2 k/uL (1.3-7.7); Neutrophils % (A) 58 %; Platelet Count 192 k/uL (150-450); RBC 4.23 m/uL (3.80-5.40); RDW 14.7 % (11.5-15.5); WBC 7.3 k/uL (3.8-10.6)
[2021-07-07 02:45] LABS: ALT 16 U/L (4-34); AST 17 U/L (14-36); African American GFR (CKD) >90 (>60 ml/min/1.73 sqM); Albumin 3.9 g/dL (3.5-5.0); Alkaline Phosphatase 48 U/L (38-126); Anion Gap 10 mmol/L; Appearance,Urine Clear (Clear); Bilirubin,Urine Negative (Negative); Blood Urea Nitrogen 16 mg/dL (7-17); Blood,Urine Negative (Negative); Calcium 9.3 mg/dL (8.4-10.2); Carbon Dioxide 20 mmol/L (22-30); Chloride 107 mmol/L (98-107); Color,Urine Light Yellow; Creatine Kinase 51 U/L (30-135); Glucose 138 mg/dL (74-99); Glucose,Urine (UA) Negative (Negative); INR 1.1 (<1.2); Ketones,Urine Negative (Negative); Leukocyte Esterase,Urine Trace (Negative); Magnesium 2.1 mg/dL (1.6-2.3); Mucus,Urine Rare /hpf; Nitrite,Urine Negative (Negative); Non-African American GFR(CKD) >90 (>60 ml/min/1.73 sqM); PH, Urine 6.5 (5.0-8.0); Partial Thromboplastin Time 24.9 sec (22.0-30.0); Potassium 3.7 mmol/L (3.5-5.1); Protein,Urine Negative (Negative); Prothrombin Time 11.3 sec (9.0-12.0); RBC,Urine <1 /hpf (0-5); Sodium 137 mmol/L (137-145); Specific Gravity,Urine 1.011 (1.001-1.035); Squamous Epithelial Cell,Urine <1 /hpf (0-4); Total Bilirubin 0.4 mg/dL (0.2-1.3); Total Protein 6.6 g/dL (6.3-8.2); Urobilinogen,Urine <2.0 mg/dL (<2.0); WBC,Urine 1 /hpf (0-5)
[2021-07-07 03:13] LABS: Amphetamine Screen,Urine Not Detected (NotDetected); Barbiturate Screen,Urine Not Detected (NotDetected); Benzodiazepines Screen,Urine Not Detected (NotDetected); Cocaine Screen,Urine Not Detected (NotDetected); Methadone Screen, Urine Not Detected (NotDetected); Opiate Screen,Urine Not Detected (NotDetected); Oxycodone Screen, Urine Not Detected (NotDetected); Phencyclidine Screen,Urine Not Detected (NotDetected); Tricyclic Antidepressant,Urine Not Detected (NotDetected); Urn Cannabinoid Scrn Not Detected (NotDetected)
[2021-07-07 04:27] VITALS: BP 95/53; PULSE 71; TEMP 98.6
== END 2021-07-07 03:29 | disposition home or self-care (01) ==
LOC: EC 00:31
DX: R53.1 Weakness (principal); J45.909 Unspecified asthma, uncomplicated; Z87.891 Personal history of nicotine dependence
CPT/HCPCS: 36415; 80053; 80306; 81001; 82550; 83605; 83735; 84100; 84443; 84484; 85025; 85610; 85730; 96360; 99284

== ENCOUNTER → 2024-04-22 | Outpatient (CLI) | payer OTHER ==
[2024-04-22 09:25] LABS: Basophils % (A) 0 %; Eosinophils # (A) 0.2 k/uL (0-0.7); Eosinophils % (A) 3 %; HCT 44.3 % (34.0-46.0); Lymphocytes % (A) 26 %; MCH 28.6 pg (25.0-35.0); MCV 84.2 fL (80.0-100.0); Mean Platelet Volume 7.5; Monocytes # (A) 0.3 k/uL (0-1.0); Monocytes % (A) 4 %; Neutrophils % (A) 65 %; Platelet Count 228 k/uL (150-450); RBC 5.26 m/uL (3.80-5.40); RDW 13.5 % (11.5-15.5); WBC 7.6 k/uL (3.8-10.6)
--- NOTE | 2024-04-22 12:07 | XR ---
EXAMINATION TYPE: XR lumbar spine 2 or 3V DATE OF EXAM: 04/22/2024 9:46 AM CLINICAL INDICATION:Female, 33 years old with history of M54.50 LOW BACK PAIN; [facility] COMPARISON: None TECHNIQUE: XR lumbar spine 2 or 3V - Frontal, lateral and coned in L5-S1 lateral views of the spine. FINDINGS: No evidence of any acute osseous pathology. No evidence of loss of vertebral body height i s seen. There is normal alignment of the lumbar vertebral bodies. L5-S1 disc space narrowing , margin al osteophyte formation throughout the visualized spine. There is facet joint arthropathy throughout the spine. At least mild neural foraminal stenosis at L5-S1. IMPRESSION: 1. No acute fracture. 2. Mild multilevel disc degeneration at L5-S1. With mild bilateral neural foraminal stenosis.
[2024-04-22 21:16] LABS: ALT 12 U/L (8-44); AST 10 U/L (13-35); Albumin 4.1 g/dL (3.8-4.9); Albumin/Globulin Ratio 2.16 Ratio (1.60-3.17); Alkaline Phosphatase 61 U/L (41-126); BUN/Creat Ratio 17.75 Ratio (12.00-20.00); Blood Urea Nitrogen 14.2 mg/dL (9.0-27.0); Calcium 9.2 mg/dL (8.7-10.3); Chloride 105 mmol/L (96-109); Chol/HDL Ratio 4.78 Ratio; Globulin 1.9 g/dL (1.6-3.3); Glucose 107 mg/dL (70-110); Iron 63 UG/DL (50-170); LDL Cholesterol,Calculated 97.7 mg/dL (0.0-131.0); Potassium 4.1 mmol/L (3.5-5.5); Sodium 140 mmol/L (135-145); T4, Free (Free Thyroxine) 1.24 ng/dL (0.80-1.80); Total Bilirubin 0.3 mg/dL (0.3-1.2)
== END | disposition home or self-care (01) ==
LOC: LABWHC1 08:56
PROVIDERS: ATTEND Nurse Practitioner Family
DX: M99.73 Connective tissue and disc stenosis of intervertebral foramina of lumbar region (principal); M51.37 Other intervertebral disc degeneration, lumbosacral region; E66.9 Obesity, unspecified; R79.0 Abnormal level of blood mineral
CPT/HCPCS: 36415; 72100; 80053; 80061; 83036; 83540; 84439; 84443; 84481; 85025

== ENCOUNTER 2024-10-28 22:20 | Emergency (ER) | payer OTHER ==
[2024-10-28 22:28] VITALS: TEMP 98.1
--- NOTE | 2024-10-28 22:37 | ED ---
Female Urogenital HPI - General Chief complaint: Vaginal Bleeding Stated complaint: 6 weeks preg,vag bleeding Time Seen by Provider: 10/28/24 22:37 Source: patient, RN notes reviewed Mode of arrival: ambulatory Limitations: no limitations - History of Present Illness Initial comments: This is a 33-year-old female [id number], who is presenting to the emergency department approximately 6 weeks gestation for vaginal bleeding. She states that yesterday in the morning she had an episode of dark red vaginal bleeding that subsided. Today around 12:00 and persistent over the past few hours she has had red vaginal bleeding and passage of dime sized clots. She denies abdominal cramping, dizziness, lightheadedness, urinary or bowel habit changes. Patient states that she has not had care for this and first appointment is in 2 weeks. Last menstrual cycle was end of August 2024. - Related Data Home Medications Medication Instructions Recorded Confirmed Albuterol Inhaler [Ventolin Hfa 1 puff INHALATION DIRECTED PRN 05/31/21 06/03/21 Inhaler] Pnv No.95/Ferrous Fum/Folic AC 1 each PO DAILY 05/31/21 05/31/21 [ Multivitamin Tablet] Allergies Allergy/AdvReac Type Severity Reaction Status Date / Time iodine Allergy Severe Rash/Hives Verified 10/28/24 22:27 shellfish derived [Shellfish] Allergy Severe Anaphylaxis Verified 10/28/24 22:27 Review of Systems ROS Statement: Those systems with pertinent positive or pertinent negative responses have been documented in the HPI. ROS Other: All systems not noted in ROS Statement are negative. Past Medical History Past Medical History: Asthma Additional Past Medical History / Comment(s): IBS, IRON DEFICIENCY, MIGRAINES, STATES BROKEN PELVIS WITH CHILDBIRTH., MENORRHAGIA. History of Any Multi-Drug Resistant Organisms: None Reported Past Surgical History: No Surgical Hx Reported Additional Past Surgical History / Comment(s): D&C Past Anesthesia/Blood Transfusion Reactions: No Reported Reaction Additional Past Anesthesia/Blood Transfusion Reaction / Comment(s): NO ANESTHESIA HX. Past Psychological History: No Psychological Hx Reported Smoking Status: Former smoker Past Alcohol Use History: Rare Past Drug Use History: None Reported - Past Family History Mother Family Medical History: No Reported History General Exam Limitations: no limitations General appearance: alert, in no apparent distress Eye exam: Present: normal appearance, PERRL, EOMI. Absent: scleral icterus, conjunctival injection, periorbital swelling ENT exam: Present: normal exam, mucous membranes moist Respiratory exam: Present: normal lung sounds bilaterally. Absent: respiratory distress, wheezes, rales, rhonchi, stridor Cardiovascular Exam: Present: regular rate, normal rhythm, normal heart sounds. Absent: systolic murmur, diastolic murmur, rubs, gallop, clicks GI/Abdominal exam: Present: soft, normal bowel sounds. Absent: distended, tenderness, guarding, rebound, rigid Speculum exam: Present: vaginal bleeding By manual exam: Absent: cervical motion tenderness, adnexal tenderness, uterine tenderness Extremities exam: Present: normal inspection, full ROM, normal capillary refill. Absent: tenderness, pedal edema, joint swelling, calf tenderness Back exam: Present: normal inspection Course Vital Signs 10/28/24 10/29/24 22:25 03:18 Temperature 98.1 F Pulse Rate 91 84 Respiratory 22 18 Rate Blood Pressure 113/71 102/59 O2 Sat by Pulse 98 98 Oximetry Medical Decision Making - Medical Decision Making Was pt. sent in by a medical professional or institution (, PA, TRUCK ENGINE ASSEMBLER, urgent care, hospital, or [facility]...) When possible be specific @ -No Did you speak to anyone other than the patient for history (EMS, parent, family, police, friend...)? What history was obtained from this source @ -No Did you review nursing and triage notes (agree or disagree)? Why? @ -I reviewed and agree with nursing and triage notes Were old charts reviewed (outside hosp., previous admission, EMS record, old EKG, old radiological studies, urgent care reports/EKG's, [facility] records)? Report findings @ -No old charts were reviewed Differential Diagnosis (chest pain, altered mental status, abdominal pain women, abdominal pain men, vaginal bleeding, weakness, fever, dyspnea, syncope, headache, dizziness, GI bleed, back pain, seizure, CVA, palpatations, mental health, musculoskeletal)? @ -Differential Vaginal Bleeding: Spontaneous , threatened , molar , ectopic , bloody show, incompetent cervix, abruptioplacenta, placenta previa, uterine rupture, dysfunctional uterine bleeding, hemorrhage, uterine fibroids, this is not meant to be an all-inclusive list. EKG interpreted by me (3pts min.). @ -None X-rays interpreted by me (1pt min.). @ -None done CT interpreted by me (1pt min.). @ -None done U/S interpreted by me (1pt. min.). @ - ultrasound completed with impression of no intrauterine What testing was considered but not performed or refused? (CT, X-rays, U/S, labs)? Why? @ -None What meds were considered but not given or refused? Why? @ -None Did you discuss the management of the patient with other professionals (professionals i.e. , PA, TRUCK ENGINE ASSEMBLER, lab, RT, psych nurse, dialysis social worker, remote control mirror installer, teacher, air force senior officer, case management assistant)? Give summary @ -No Was smoking cessation discussed for >3mins.? @ -No Was critical care preformed (if so, how long)? @ -No Were there social determinants of health that impacted care today? How? (Homelessness, low income, unemployed, alcoholism, drug addiction, transportation, low edu. Level, literacy, decrease access to med. care, group home, rehab)? @ -No Was there de-escalation of care discussed even if they declined (Discuss DNR or withdrawal of care, Hospice)? DNR status @ -No What co-morbidities impacted this encounter? (DM, HTN, Smoking, COPD, CAD, Cancer, CVA, ARF, Chemo, Hep., AIDS, mental health diagnosis, sleep apnea, morbid obesity)? @ -None Was patient admitted / discharged? Hospital course, mention meds given and route, prescriptions, significant lab abnormalities, going to OR and other pertinent info. @ -Discharge. 33-year-old female presenting approximately 6 weeks gestation with vaginal bleeding. My evaluation patient denies any COVID no signs acute distress. Vitals are stable. Pelvic examination markable for vaginal bleeding with no signs of cervical os opening. CBC and CMP unremarkable, hCG quantitativ e level 57. Urinalysis no signs of infection, remarkable for blood. Patient's blood type is A+. Discussed with patient that ultrasound does not reveal an interim at this time. Recommend that patient return for repeat hCG testing in 48 hours and to follow-up with OB in addition to repeat ultrasound in 1 to 2 weeks. All questions have been answered at bedside strict return parameters have discussed the patient she is provide understanding. Case discussed with Dr. Fall Undiagnosed new problem with uncertain prognosis? @ -No Drug Therapy requiring intensive monitoring for toxicity (Heparin, Nitro, Insulin, Cardizem)? @ -No Were any procedures done? @ -No Diagnosis/symptom? @ -Vaginal bleeding Acute, or Chronic, or Acute on Chronic? @ -Acute Uncomplicated (without systemic symptoms) or Complicated (systemic symptoms)? @ -Uncomplicated Side effects of treatment? @ -No Exacerbation, Progression, or Severe Exacerbation? @ -No Poses a threat to life or bodily function? How? (Chest pain, [place], [place], pneumonia, PE, COPD, DKA, ARF, appy, cholecystitis, CVA, Diverticulitis, Homicidal, Suicidal, threat to staff... and all critical care pts) @ -No - Lab Data Result diagrams: 10/28/24 22:50 10/28/24 22:50 Lab Results 10/28/24 10/28/24 10/28/24 Range/Units 22:50 22:50 22:50 WBC 7.1 (3.8-10.6) k/uL RBC 4.61 (3.80-5.40) m/uL Hgb 13.0 (11.4-16.0) gm/dL Hct 37.1 (34.0-46.0) % MCV 80.4 (80.0-100.0) fL MCH 28.1 (25.0-35.0) pg MCHC 35.0 (31.0-37.0) g/dL RDW 13.5 (11.5-15.5) % Plt Count 182 (150-450) k/uL MPV 7.5 Neutrophils % 62 % Lymphocytes % 28 % Monocytes % 5 % Eosinophils % 3 % Basophils % 0 % Neutrophils # 4.4 (1.3-7.7) k/uL Lymphocytes # 2.0 (1.0-4.8) k/uL Monocytes # 0.3 (0-1.0) k/uL Eosinophils # 0.2 (0-0.7) k/uL Basophils # 0.0 (0-0.2) k/uL Sodium 136 L (137-145) mmol/L Potassium 3.9 (3.5-5.1) mmol/L Chloride 104 (98-107) mmol/L Carbon Dioxide 22 (22-30) mmol/L Anion Gap 10 mmol/L BUN 15 (7-17) mg/dL Creatinine 0.77 (0.52-1.04) mg/dL Est GFR (CKD-EPI)AfAm >90 (>60 ml/min/1.73 sqM) Est GFR (CKD-EPI)NonAf >90 (>60 ml/min/1.73 sqM) Glucose 101 H (74-99) mg/dL Calcium 9.5 (8.4-10.2) mg/dL Total Bilirubin 0.4 (0.2-1.3) mg/dL AST 29 (14-36) U/L ALT 78 H (4-34) U/L Alkaline Phosphatase 59 (38-126) U/L Total Protein 6.7 (6.3-8.2) g/dL Albumin 4.2 (3.5-5.0) g/dL HCG, Quant 57.5 mIU/mL Urine Color Urine Appearance (Clear) Urine pH (5.0-8.0) Ur Specific [place] (1.001-1.035) Urine Protein (Negative) Urine Glucose (UA) (Negative) Urine Ketones (Negative) Urine Blood (Negative) Urine Nitrite (Negative) Urine Bilirubin (Negative) Urine Urobilinogen (<2.0) mg/dL Ur Leukocyte Esterase (Negative) Urine RBC (0-5) /hpf Urine WBC (0-5) /hpf Ur Squamous Epith Cells (0-4) /hpf Urine Bacteria (None) /hpf Urine Mucus (None) /hpf Blood Type A Positive Blood Type Recheck A Pos Bld Type Recheck Status No 10/28/24 Range/Units 22:52 WBC (3.8-10.6) k/uL RBC (3.80-5.40) m/uL Hgb (11.4-16.0) gm/dL Hct (34.0-46.0) % MCV (80.0-100.0) fL MCH (25.0-35.0) pg MCHC (31.0-37.0) g/dL RDW (11.5-15.5) % Plt Count (150-450) k/uL MPV Neutrophils % % Lymphocytes % % Monocytes % % Eosinophils % % Basophils % % Neutrophils # (1.3-7.7) k/uL Lymphocytes # (1.0-4.8) k/uL Monocytes # (0-1.0) k/uL Eosinophils # (0-0.7) k/uL Basophils # (0-0.2) k/uL Sodium (137-145) mmol/L Potassium (3.5-5.1) mmol/L Chloride (98-107) mmol/L Carbon Dioxide (22-30) mmol/L Anion Gap mmol/L BUN (7-17) mg/dL Creatinine (0.52-1.04) mg/dL Est GFR (CKD-EPI)AfAm (>60 ml/min/1.73 sqM) Est GFR (CKD-EPI)NonAf (>60 ml/min/1.73 sqM) Glucose (74-99) mg/dL Calcium (8.4-10.2) mg/dL Total Bilirubin (0.2-1.3) mg/dL AST (14-36) U/L ALT (4-34) U/L Alkaline Phosphatase (38-126) U/L Total Protein (6.3-8.2) g/dL Albumin (3.5-5.0) g/dL HCG, Quant mIU/mL Urine Color Light Yellow Urine Appearance Clear (Clear) Urine pH 5.5 (5.0-8.0) Ur Specific [place] 1.012 (1.001-1.035) Urine Protein Negative (Negative) Urine Glucose (UA) Negative (Negative) Urine Ketones Negative (Negative) Urine Blood Large H (Negative) Urine Nitrite Negative (Negative) Urine Bilirubin Negative (Negative) Urine Urobilinogen <2.0 (<2.0) mg/dL Ur Leukocyte Esterase Small H (Negative) Urine RBC >182 H (0-5) /hpf Urine WBC 14 H (0-5) /hpf Ur Squamous Epith Cells <1 (0-4) /hpf Urine Bacteria Occasional H (None) /hpf Urine Mucus Rare H (None) /hpf Blood Type Blood Type Recheck Bld Type Recheck Status Disposition Clinical Impression: Vaginal bleeding during Disposition: HOME SELF-CARE Condition: Good Instructions (If sedation given, give patient instructions): Threatened Miscarriage (ED) Additional Instructions: Please return to the Emergency Department if symptoms worsen or any other concerns. Is patient prescribed a controlled substance at d/c from ED?: No Referrals: Toby Gonzáles DO [Primary Care Provider] - 1-2 days Time of Disposition: 02:52
[2024-10-28 23:15] LABS: Basophils % (A) 0 %; Eosinophils # (A) 0.2 k/uL (0-0.7); Eosinophils % (A) 3 %; HCT 37.1 % (34.0-46.0); Lymphocytes % (A) 28 %; MCH 28.1 pg (25.0-35.0); MCV 80.4 fL (80.0-100.0); Mean Platelet Volume 7.5; Monocytes # (A) 0.3 k/uL (0-1.0); Monocytes % (A) 5 %; Neutrophils # (A) 4.4 k/uL (1.3-7.7); Neutrophils % (A) 62 %; Platelet Count 182 k/uL (150-450); RBC 4.61 m/uL (3.80-5.40); RDW 13.5 % (11.5-15.5); WBC 7.1 k/uL (3.8-10.6)
[2024-10-28 23:45] LABS: Appearance,Urine Clear (Clear); Bacteria,Urine Occasional /hpf; Bilirubin,Urine Negative (Negative); Blood,Urine Large (Negative); Color,Urine Light Yellow; Glucose,Urine (UA) Negative (Negative); Ketones,Urine Negative (Negative); Leukocyte Esterase,Urine Small (Negative); Mucus,Urine Rare /hpf; Nitrite,Urine Negative (Negative); PH, Urine 5.5 (5.0-8.0); Protein,Urine Negative (Negative); RBC,Urine >182 /hpf (0-5); Specific Gravity,Urine 1.012 (1.001-1.035); Squamous Epithelial Cell,Urine <1 /hpf (0-4); Urobilinogen,Urine <2.0 mg/dL (<2.0); WBC,Urine 14 /hpf (0-5)
[2024-10-28 23:46] LABS: ALT 78 U/L (4-34); AST 29 U/L (14-36); African American GFR (CKD) >90 (>60 ml/min/1.73 sqM); Albumin 4.2 g/dL (3.5-5.0); Alkaline Phosphatase 59 U/L (38-126); Anion Gap 10 mmol/L; Blood Urea Nitrogen 15 mg/dL (7-17); Calcium 9.5 mg/dL (8.4-10.2); Carbon Dioxide 22 mmol/L (22-30); Chloride 104 mmol/L (98-107); Glucose 101 mg/dL (74-99); Non-African American GFR(CKD) >90 (>60 ml/min/1.73 sqM); Potassium 3.9 mmol/L (3.5-5.1); Sodium 136 mmol/L (137-145); Total Bilirubin 0.4 mg/dL (0.2-1.3); Total Protein 6.7 g/dL (6.3-8.2)
[2024-10-29 00:03] LABS: HCG,Quantitative Serum 57.5 mIU/mL
[2024-10-29 03:18] VITALS: BP 102/59; PULSE 84; RESP 18
--- NOTE | 2024-10-29 03:49 | US ---
EXAM: US , Transvaginal CLINICAL HISTORY: ITS.REASON US Reason: 6 weeks gestation, bleeding TECHNIQUE: Real-time transvaginal obstetrical ultrasound of the maternal pelvis and a first trimester with image documentation. Transvaginal imaging was used for better evaluation of the fetus and adnexa. COMPARISON: No relevant prior studies available. FINDINGS: Uterus: 9.6 x 5.6 x 4.9cm Right Ovary: 2.6 x 2.4 x 2.1cm Left Ovary: 2.8 x 1.8 x 1.4cm Post CDS / Adnexa: wnl Presence of free fluid: no Presence of corpus luteal cyst: not seen Presence of subchorionic bleed: no GESTATION / SURVEY CRL: not seen Gestational Sac: not seen Endometrium = 1.8 - 2.0cm, peristalsing seen within, probably blood IMPRESSION: Endometrium = 1.8 - 2.0cm, peristalsing seen within, probably blood No intrauterine
== END 2024-10-29 03:18 | disposition home or self-care (01) ==
LOC: EC 22:20
DX: O20.9 Hemorrhage in early pregnancy, unspecified (principal); Z87.891 Personal history of nicotine dependence; Z88.8 Allergy status to other drugs, medicaments and biological substances; Z91.013 Allergy to seafood; Z3A.01 Less than 8 weeks gestation of pregnancy
CPT/HCPCS: 36415; 76801; 80053; 81001; 84702; 85025; 86900; 86901; 99284